=== PATIENT | female | born 1940 | race Hispanic/Latino ===

== ENCOUNTER 2017-09-17 10:12 | Emergency (ER) | payer MEDICARE, OTHER ==
[2017-09-17] MEDS ORDERED: ONDANSETRON HCL MDV 20ML 2 MG/ML VIAL ONE ×2 (11:16→11:17)
[2017-09-17] MEDS ORDERED: SODIUM CHLORIDE 0.9% 1000ML 1,000 ML IV ONE (11:16)
[2017-09-17 11:31] LABS: BASOPHILS % (AUTO) 0.2 % (0.0-5.0); EOSINOPHILS % (AUTO) 0.2 % (0.0-8.0); LYMPHOCYTES % (AUTO) 30.9 % (21.0-51.0); MEAN CORPUSCULAR HEMOGLOBIN 28.5 pg (27.0-33.0); MEAN CORPUSCULAR HGB CONC 33.8 g/dL (32.0-36.0); MEAN CORPUSCULAR VOLUME 84.2 fL (79-99); NEUTROPHILS % (AUTO) 59.7 % (40.0-77.0); PLATELET COUNT (AUTO) 161 K/uL (130-400); RED BLOOD CELL COUNT(AUTO) 4.99 MIL/uL (4.00-5.50); RED CELL DISTRIBUTION WIDTH 13.8 % (11.0-15.5)
[2017-09-17 11:43] LABS: ALBUMIN 3.4 g/dL (3.5-5.0); BILIRUBIN,TOTAL 0.5 mg/dL (0.2-1.0); CREATININE 0.6 mg/dL (0.5-1.5); TOTAL PROTEIN, SERUM 6.8 g/dL (6.0-8.3)
[2017-09-17] MEDS ORDERED: MAGNESIUM HYDROXIDE 30 ML/UDCUP ONE (11:57)
[2017-09-17] MEDS ORDERED: LIDOCAINE HCL 2% VISCOUS 15 ML UDCUP ONE (11:57)
[2017-09-17] MEDS ORDERED: FAMOTIDINE 20MG TAB 20 MG TAB ONE (12:33)
[2017-09-17] MEDS ORDERED: POTASSIUM CHLORIDE 20 MEQ ERTAB PO ONE (13:01)
== END 2017-09-17 13:37 | disposition home or self-care (01) ==
LOC: EDH 10:12
DX: K29.70 Gastritis, unspecified, without bleeding (principal); R10.13 Epigastric pain; E11.9 Type 2 diabetes mellitus without complications; I10 Essential (primary) hypertension; E78.5 Hyperlipidemia, unspecified; Z85.850 Personal history of malignant neoplasm of thyroid; Z79.82 Long term (current) use of aspirin
CPT/HCPCS: 36415; 80053; 83690; 85025; 96361; 96374; 99284; J7030

== ENCOUNTER → 2019-06-02 | Outpatient (CLI) | payer OTHER | END | disposition home or self-care (01) | LOC: SHCH 08:42 | PROVIDERS: ATTEND Internal Medicine Cardiovascular Disease | DX: I73.9 Peripheral vascular disease, unspecified (principal) | CPT/HCPCS: 93922 ==

== ENCOUNTER 2023-04-29 06:18 | Day surgery (SDC) | payer MEDICARE ==
[2023-04-24 10:39] LABS: BASOPHILS # (AUTO) 0.01 K/uL (0.00-0.20); BASOPHILS % (AUTO) 0.1 % (0.0-5.0); EOSINOPHILS # (AUTO) 0.01 K/uL (0.00-0.70); EOSINOPHILS % (AUTO) 0.1 % (0.0-8.0); IMMATURE GRANULOCYTE ABSOLUTE 0.03 K/uL (0-1); LYMPHOCYTES # (AUTO) 2.6 K/uL (1.0-4.8); LYMPHOCYTES % (AUTO) 29.5 % (21.0-51.0); MONOCYTES # (AUTO) 0.7 K/uL (0.1-1.0); MONOCYTES % (AUTO) 8.1 % (3.0-13.0); NEUTROPHILS # (AUTO) 5.4 K/uL (1.8-7.7); NEUTROPHILS % (AUTO) 61.9 % (40.0-77.0); PLATELET COUNT (AUTO) 160 K/uL (130-400); RED CELL DISTRIBUTION WIDTH 15.9 % (11.0-15.5); WHITE BLOOD COUNT (AUTO) 8.7 K/uL (4.8-10.8)
[2023-04-24 10:46] LABS: CREATININE 0.7 mg/dL (0.5-1.5); POTASSIUM 4.5 mmol/L (3.5-5.1)
[2023-04-24 10:49] LABS: INR < 0.93 (0.85-1.15); PROTHROMBIN TIME 10.7 SEC (9.6-11.6)
[2023-04-24 10:50] VITALS: BP 144/79; PULSE 18; RESP 18
[2023-04-24 13:00] LABS: HEMATOCRIT 45.9 % (36-48); MEAN CORPUSCULAR VOLUME 89.1 fL (79-99)
[2023-04-24 13:01] LABS: MEAN CORPUSCULAR HEMOGLOBIN 28.3 pg (27.0-33.0); MEAN CORPUSCULAR HGB CONC 31.8 g/dL (32.0-36.0)
[2023-04-24 13:02] LABS: RED BLOOD CELL COUNT(AUTO) 5.15 MIL/uL (4.00-5.50)
[~2023-04-29] VITALS: Ht 165.1 cm; Wt 104.2 kg
[2023-04-29] VITALS (11 sets, daily range): BP systolic 105–147; BP diastolic 45–80; PULSE 70–82; RESP 14–18
[~2023-04-29 06:18] MED LIST: ATOR40TA69 PO; CALC-1125 PO; CHOL400C9 PO; CYAN250010 PO; ENAL-91 PO; LEVO112C4 PO; METF-446 PO; MULT-1203 PO; TURM500C13 PO
[2023-04-29] MEDS ORDERED: BUPIVACAINE/PF 0.5% 30ML VIAL ONE (07:09)
[2023-04-29] MEDS ORDERED: EPINEPHRINE PF 1MG (1:1,000) 1 MG/ML AMP ONE (07:09)
[2023-04-29] MEDS ORDERED: 0.9%NACL 1000ML 1,000 ML IV ONE (07:24)
[2023-04-29] MEDS ORDERED: CEFAZOLIN SODIUM 2 GM VIAL ONE (07:24)
[2023-04-29] MEDS ORDERED: MIDAZOLAM HCL 1 MG/ML 2ML VIAL ONE ×3 (07:53→08:14)
[2023-04-29] MEDS ORDERED: FENTANYL CITRATE PF 50 MCG/1 ML 2ML VIAL ONE (08:00)
[2023-04-29] MEDS ORDERED: BUPIVACAINE/EPI/PF 0.5% 30ML VIAL IJ ONE (08:21)
[2023-04-29] MEDS ORDERED: TRAM50TA4 PO (08:39)
[2023-04-29] MEDS ORDERED: DOCU-116 PO (08:39)
[2023-04-29] MEDS ORDERED: GABA-529 PO (08:39)
== END 2023-04-29 10:00 | disposition home or self-care (01) ==
LOC: DAH 06:18
PROVIDERS: ATTEND Surgery
DX: D17.1 Benign lipomatous neoplasm of skin and subcutaneous tissue of trunk (principal); I10 Essential (primary) hypertension; E11.9 Type 2 diabetes mellitus without complications; Z79.899 Other long term (current) drug therapy; Z79.84 Long term (current) use of oral hypoglycemic drugs; Z88.6 Allergy status to analgesic agent; Z82.49 Family history of ischemic heart disease and other diseases of the circulatory system; Z80.9 Family history of malignant neoplasm, unspecified; Z80.0 Family history of malignant neoplasm of digestive organs; Z82.3 Family history of stroke; Z83.3 Family history of diabetes mellitus; Z90.49 Acquired absence of other specified parts of digestive tract; Z98.890 Other specified postprocedural states
CPT/HCPCS: 93005; 80048; 85025; 85610; 85730; 36415; 21933; 82948 ×2; 88304; A6260; A4663; J7030 ×2; J3010; J0171; J2250 ×3; J0665; J3490; J0690; A4215; A4223; A4222; A4221; A4216; A4600

== ENCOUNTER → 2024-10-06 | Outpatient (CLI) | payer MEDICARE ==
[~2024-10-06] MED LIST changes: +CHOL10CA2 PO; -CHOL400C9 PO; +DOCU-116 PO; +GABA-529 PO; -LEVO112C4 PO; +LEVO112C5 PO; +TRAM50TA4 PO
--- NOTE | 2024-10-06 14:35 | HMCIMG ---
LEFT ANKLE RADIOGRAPHS -2 VIEWS INDICATION: Pain COMPARISON: None FINDINGS: AP, lateral views. No fracture or dislocation identified. The talar dome is intact. Ankle mortise and tibial plafond are well maintained. No significant joint effusion is present. 1 cm plantar calcaneal spur. Subcentimeter traction enthesophyte arises off the posterior calcaneus at the Achilles tendon attachment. Extensive arterial wall calcific plaque. IMPRESSION: No evidence for fracture or dislocation.
--- NOTE | 2024-10-06 14:35 | HMCIMG ---
LEFT FOOT RADIOGRAPHS - 2 VIEWS INDICATION: Pain COMPARISON: None FINDINGS: AP, lateral views. No fracture or subluxation identified. Midfoot alignment is well maintained. Nominal first metatarsophalangeal joint osteoarthropathy. Mild medial margin first metatarsal head bunion deformity. 1 cm plantar calcaneal spur. Subcentimeter traction enthesophyte arises off the posterior calcaneus at the Achilles tendon attachment. Extensive arterial wall calcific plaque. IMPRESSION: No evidence for fracture or subluxation.
== END | disposition home or self-care (01) ==
LOC: RAH 12:27
PROVIDERS: ATTEND Internal Medicine
DX: M19.072 Primary osteoarthritis, left ankle and foot (principal); M77.32 Calcaneal spur, left foot; M21.612 Bunion of left foot; M21.6X2 Other acquired deformities of left foot; M77.52 Other enthesopathy of left foot and ankle; M25.472 Effusion, left ankle; I70.90 Unspecified atherosclerosis; M79.672 Pain in left foot; M25.572 Pain in left ankle and joints of left foot
CPT/HCPCS: 73600; 73620